=== PATIENT | female | born 1945 | race Caucasian/White ===

== ENCOUNTER 2016-10-30 09:36 | Outpatient (CLI) | payer MEDICARE | END 2016-10-30 09:37 | disposition home or self-care (01) | DX: Z12.31 Encounter for screening mammogram for malignant neoplasm of breast (principal); Z80.3 Family history of malignant neoplasm of breast ==

== ENCOUNTER 2016-12-26 10:39 | Outpatient (CLI) | payer MEDICARE | END 2016-12-26 10:40 | disposition home or self-care (01) | DX: I10 Essential (primary) hypertension (principal) ==

== ENCOUNTER 2017-04-28 10:31 | Outpatient (CLI) | payer MEDICARE ==
[2017-04-28 10:51] LABS: BASOPHILS # (AUTO) 0.1 10^3/uL (0.0-0.1); EOSINOPHILS # (AUTO) 0.4 10^3/uL (0.0-0.7); EOSINOPHILS % (AUTO) 7.4 %; HCT - HEMATOCRIT 38.1 % (37.0-47.0); HGB - HEMOGLOBIN 12.9 g/dL (12.0-16.0); LYMPHOCYTES # (AUTO) 1.8 10^3/uL (1.5-3.5); LYMPHOCYTES % (AUTO) 32.5 %; MEAN CORPUSCULAR HEMOGLOBIN 31.3 pg (27.0-31.0); MEAN CORPUSCULAR HGB CONC 33.9 g/dL (32.0-36.0); MEAN CORPUSCULAR VOLUME 92.3 fL (81.0-99.0); MEAN PLATELET VOLUME 7.6 fL (7.9-10.8); MONOCYTES # (AUTO) 0.6 10^3/uL (0.0-1.0); MONOCYTES % (AUTO) 10.5 %; NEUTROPHILS # (AUTO) 2.7 10^3/uL (1.5-6.6); NEUTROPHILS % (AUTO) 48.6 %; RED BLOOD COUNT 4.13 10^6/uL (4.20-5.40); RED CELL DISTRIBUTION WIDTH 15.2 % (12.0-15.0); UNCORRECTED WHITE BLOOD COUNT 5.5 x10^3/uL; WHITE BLOOD COUNT 5.5 x10^3/uL (4.8-10.8)
[2017-04-28 11:08] LABS: ALBUMIN/GLOBULIN RATIO 1.6 (1.0-2.2); BILIRUBIN,TOTAL 0.4 mg/dL (0.2-1.0); BUN - BLOOD UREA NITROGEN 27 mg/dL (6-20); CARBON DIOXIDE - CO2 28 mmol/L (21-32); CHLORIDE 102 mmol/L (101-111); CHOL/HDL RATIO 2.3 (<4.4); CHOLESTEROL 213 mg/dL; CREATININE 0.5 mg/dL (0.4-1.0); GFR - MDRD 122 (>89); GLUCOSE 109 mg/dL (70-100); HDL CHOLESTEROL 91 mg/dL; POTASSIUM 4.5 mmol/L (3.5-5.0); SODIUM 137 mmol/L (135-145); TOTAL PROTEIN 7.4 g/dL (6.7-8.2)
[2017-04-28 11:24] LABS: LDL/HDL RATIO 1.2 (<4.4); TRIGLYCERIDES 56 mg/dL; VLDL CHOLESTEROL 11 mg/dL
== END 2017-04-28 10:32 | disposition home or self-care (01) ==
LOC: LAB 10:31
PROVIDERS: ATTEND Family Medicine
DX: I10 Essential (primary) hypertension (principal)
CPT/HCPCS: 36415; 80053; 80061; 85025

== ENCOUNTER 2017-05-01 10:36 | Outpatient (CLI) | payer MEDICARE | END 2017-05-01 10:37 | disposition home or self-care (01) | LOC: LAB 10:36 | PROVIDERS: ATTEND Family Medicine | DX: Z13.89 Encounter for screening for other disorder (principal) | CPT/HCPCS: 36415; 86787 ==

== ENCOUNTER 2017-05-11 08:13 | Outpatient (CLI) | payer MEDICARE ==
--- NOTE | 2017-05-11 12:19 | CT Report ---
CT OF THE CHEST FOR LUNG CANCER SCREENIN05/11/2017 CLINICAL INDICATION: A 72-year-old with [id number] history of smoking, quit within the last 15 year s, for screening. COMPARISON: None. TECHNIQUE: Axial CT images of the chest were obtained without intravenous contrast, using low dose sc reening technique. FINDINGS: The heart and great vessels demonstrate atherosclerotic calcification, mild. No hilar or m ediastinal lymphadenopathy is present. Mild emphysema is present. No suspicious pulmonary nodule or m ass lesion is seen. No effusion or pneumothorax is present. The osseous structures demonstrate degene rative changes. Limited evaluation of upper abdominal structures is unremarkable. IMPRESSION: NEGATIVE EXAMINATION. RECOMMENDATION: CONTINUE ANNUAL SCREENING WITH LOW DOSE CT IN TWELVE MONTHS. LUNG RADS CATEGORY 1-NEGATIVE. In accordance with CT protocol optimization, one or more of the following dose reduction techniques w ere utilized for this exam: automated exposure control, adjustment of mA and/or KV based on patient size, or use of iterative reconstructive technique. JOB #: [id number] EXT JOB #:[id number]
== END 2017-05-11 08:14 | disposition home or self-care (01) ==
LOC: DI 08:13
PROVIDERS: ATTEND Family Medicine
DX: Z12.2 Encounter for screening for malignant neoplasm of respiratory organs (principal); Z87.891 Personal history of nicotine dependence

== ENCOUNTER 2017-12-14 09:25 | Outpatient (CLI) | payer MEDICARE ==
--- NOTE | 2017-12-14 15:51 | DEXA Report ---
DEXA SCAN: 12/14/2017 CLINICAL INDICATION: Postmenopausal osteopenia. TECHNIQUE: Dual energy x-ray absorptiometry (DXA) was performed on a [employer] system. Regions measured are the AP spine, femoral neck, and, if needed, forearm. COMPARISON: None. In accordance with the International Society for Clinical Densitometry (ISCD) guidelines, data from previous exams may be reanalyzed using current recommendations and techniques. This is done to allow a more accurate basis for comparison with the current study. FINDINGS The data for the lumbar spine is as follows: REGION BMD (g/cm/cm) T-SCORE Z-SCORE L1 0.997 -1.1 0.5 L2 1.094 -0.9 0.7 L3 1.132 -0.6 1.0 L4 1.097 -0.9 0.7 L1-L4 1.086 -0.8 0.8 NOTE: All evaluable vertebrae are used for classification. The data for the hip is as follows: REGION BMD (g/cm/cm) T-SCORE Z-SCORE Neck 0.901 -1.0 0.7 TOTAL 0.944 -0.5 0.9 NOTE: The femoral neck or total proximal femur, whichever is lowest, is used for classification. IMPRESSION THE WHO CLASSIFICATION BASED ON THE INTERNATIONAL REFERENCE STANDARD IS NORMAL. THE FRACTURE RISK IS NOT INCREASED. RECOMMENDATION: Patients with diagnosis of osteoporosis or osteopenia should have regular bone mineral density assessment. For those eligible for Medicare, routine testing is allowed once every 2 years. Testing frequency can be increased for patients who have rapidly progressing disease or for those who are receiving medical therapy to restore bone mass. COMMENT: World Health Organization (WHO) definitions for osteoporosis and osteopenia: NORMAL BMD: T-score at 1.0 or higher, fracture risk is low. OSTEOPENIA BMD: T-score between 1.0 and -2.5, fracture risk is increased. OSTEOPOROSIS BMD: T-score at 2.5 or lower, fracture risk high. National Osteoporosis Foundation recommends: 1. Obtain adequate dietary calcium (at least 1200 mg per day) and vitamin D (400 -800 international units per day). 2. Participate, as appropriate, in regular weightbearing and muscle- strengthening exercise. 3. Avoid tobacco use and reduce alcohol and caffeine intake. 4. For more detailed information see the website at www.NOF.org. TD: 12/14/2017 12:33 MTDPia
== END 2017-12-14 09:26 | disposition home or self-care (01) ==
LOC: DI 09:25
PROVIDERS: ATTEND Family Medicine
DX: M85.80 Other specified disorders of bone density and structure, unspecified site (principal)
CPT/HCPCS: 77080

== ENCOUNTER 2017-12-14 09:25 | Outpatient (CLI) | payer MEDICARE ==
--- NOTE | 2017-12-16 18:30 | Mammography Report ---
DIGITAL SCREENING MAMMOGRAM: 12/14/2017 CLINICAL INDICATION: A 72-year-old with history of late childbearing, family history of breast cancer for screening. COMPARISON: 10/2016, 08/2015, 04/2014, 12/2012, 06/2011, 05/2010. TECHNIQUE: Routine CC and MLO projections were obtained of the breasts. FINDINGS: Scattered fibroglandular tissue is present within the breasts. There are no dominant masses, suspicious microcalcifications, or secondary signs of malignancy. In comparison to the previous studies, there are no significant changes. ASSESSMENT: NO MAMMOGRAPHIC EVIDENCE OF MALIGNANCY. NO SIGNIFICANT INTERVAL CHANGES. RECOMMENDATION: Screening mammography is recommended annually. BIRADS category 1 - negative. STANDARD QUALIFYING STATEMENTS: 1. This examination was reviewed with the aid of Computed-Aided Detection (CAD). 2. A negative or benign imaging report should not delay biopsy if clinically suspicious findings are present. Consider surgical consultation if warranted. More than 5% of cancers are not identified by imaging. 3. Dense breasts may obscure an underlying neoplasm. TD: 12/16/2017 18:29
== END 2017-12-14 09:26 | disposition home or self-care (01) ==
LOC: DI 09:25
PROVIDERS: ATTEND Family Medicine
DX: Z12.31 Encounter for screening mammogram for malignant neoplasm of breast (principal); Z80.3 Family history of malignant neoplasm of breast
CPT/HCPCS: 77067

== ENCOUNTER 2018-06-24 07:24 | Outpatient (CLI) | payer MEDICARE ==
[2018-06-24 08:19] LABS: BASOPHILS % (AUTO) 1.1 %; EOSINOPHILS # (AUTO) 0.3 10^3/uL (0.0-0.7); EOSINOPHILS % (AUTO) 7.3 %; HGB - HEMOGLOBIN 13.3 g/dL (12.0-16.0); LYMPHOCYTES # (AUTO) 1.4 10^3/uL (1.5-3.5); LYMPHOCYTES % (AUTO) 34.1 %; MEAN CORPUSCULAR HGB CONC 34.1 g/dL (32.0-36.0); MEAN CORPUSCULAR VOLUME 93.7 fL (81.0-99.0); MEAN PLATELET VOLUME 8.1 fL (7.9-10.8); MONOCYTES # (AUTO) 0.4 10^3/uL (0.0-1.0); MONOCYTES % (AUTO) 10.2 %; NEUTROPHILS % (AUTO) 47.3 %; PLT - PLATELET COUNT 218 10^3/uL (130-450); RED BLOOD COUNT 4.16 10^6/uL (4.20-5.40); RED CELL DISTRIBUTION WIDTH 13.6 % (12.0-15.0); WHITE BLOOD COUNT 4.2 x10^3/uL (4.8-10.8)
[2018-06-24 08:44] LABS: ALBUMIN 4.5 g/dL (3.2-5.5); ALBUMIN/GLOBULIN RATIO 1.6 (1.0-2.2); ALKALINE PHOSPHATASE 44 IU/L (42-121); ALT ALANINE AMINOTRANSFERASE 22 IU/L (10-60); AST ASPARTATE AMINOTRANSFERASE 26 IU/L (10-42); BILIRUBIN,TOTAL 0.7 mg/dL (0.2-1.0); BUN - BLOOD UREA NITROGEN 29 mg/dL (6-20); CALCIUM 9.2 mg/dL (8.5-10.3); CARBON DIOXIDE - CO2 26 mmol/L (21-32); CHLORIDE 101 mmol/L (101-111); CHOL/HDL RATIO 2.7 (<4.4); CHOLESTEROL 197 mg/dL; CREATININE 0.7 mg/dL (0.4-1.0); GFR - MDRD 82 (>89); GLUCOSE 116 mg/dL (70-100); HDL CHOLESTEROL 72 mg/dL; LDL CHOLESTEROL,CALCULATED 116 mg/dL; LDL/HDL RATIO 1.6 (<4.4); SODIUM 136 mmol/L (135-145); TOTAL PROTEIN 7.3 g/dL (6.7-8.2); VLDL CHOLESTEROL 9 mg/dL
[2018-06-25 16:32] LABS: HEPATITIS C ANTIBODY NON-REACTIVE (NON-REACTIVE)
== END 2018-06-24 07:25 | disposition home or self-care (01) ==
LOC: LAB 07:24
PROVIDERS: ATTEND Family Medicine
DX: I10 Essential (primary) hypertension (principal); Z13.818 Encounter for screening for other digestive system disorders; Z72.89 Other problems related to lifestyle
CPT/HCPCS: 36415; 80053; 80061; 83721; 84443; 85025; 86803

== ENCOUNTER 2018-06-24 07:43 | Outpatient (CLI) | payer MEDICARE ==
--- NOTE | 2018-06-24 11:33 | XRAY Report ---
Reason: SHOULDER PAIN,LEFT Procedure Date: 06/24/2018 Accession Number: [id number] / [id number] Procedure: XR - Shoulder 3 View LT CPT Code: FULL RESULT: EXAM: LEFT SHOULDER RADIOGRAPHY EXAM DATE: 06/24/2018 07:46 AM. CLINICAL HISTORY: Left shoulder pain for 3 months. COMPARISON: XR CHEST PA AND LAT 09/18/2008. TECHNIQUE: 3 views. FINDINGS: Bones: Normal. No fracture or bone lesion. Joints: The glenohumeral and acromioclavicular joints are normally aligned. No significant degenerative changes. There is an ovoid calcific density measuring 10 x 4 mm adjacent to the superior lateral margin of the humeral head which may or present sequela of calcific tendinopathy or an intra-articular loose body. Soft tissues: The visualized hemithorax is unremarkable. No soft tissue swelling. IMPRESSION: 1. No acute osseous abnormality. 2. Ovoid calcific density adjacent to the superolateral margin of the humeral head may represent sequela of calcific tendinopathy or an intra-articular loose body. RADIA
== END 2018-06-24 07:44 | disposition home or self-care (01) ==
LOC: DI 07:43
PROVIDERS: ATTEND Family Medicine
DX: M25.512 Pain in left shoulder (principal); M25.812 Other specified joint disorders, left shoulder; I10 Essential (primary) hypertension; Z78.9 Other specified health status
CPT/HCPCS: 36415; 80053; 80061; 83721; 84443; 85025; 86803

== ENCOUNTER 2018-06-25 07:17 | Outpatient (CLI) | payer MEDICARE ==
--- NOTE | 2018-06-26 10:29 | CT Report ---
Reason: NICOTINE DEPENDENCE, CIGARETTES IN REMISSION Procedure Date: 06/25/2018 Accession Number: [id number] / [id number] Procedure: CT - Chest/Lung Screen Low Dose W/O CPT Code: FULL RESULT: EXAM CT LUNG SCREEN EXAM DATE: 06/25/2018 07:34 AM. HISTORY: 73-year-old patient with [id number] smoking history. Currently smoking: No. Years since quitting: < 15 years. COMPARISON: CHEST SCREEN LOW DOSE W/O 05/11/2017 8:27 AM. TECHNIQUE: CT examination of the entire thorax without contrast was performed using low-dose technique. Thin section coronal, axial, sagittal and MIP axial images were obtained. In accordance with CT protocol optimization, one or more of the following dose reduction techniques were utilized for this exam: automated exposure control, adjustment of mA and/or KV based on patient size, or use of iterative reconstructive technique. FINDINGS: Nodules: Right upper lobe: Few stable tiny pulmonary nodules/nodular opacities (4/30, 43, 50, 55) measuring up to approximately 4 mm (4/43). Right middle lobe: None. Right lower lobe: None. Stable basal lung cyst. Left upper lobe: Stable 2 mm calcified nodule probably granuloma (4/22). Left lower lobe: Stable subpleural 5 mm nodule (4/108). Emphysema: None. Pleura: Unremarkable. Aorta: Unremarkable. Mediastinum: Scattered atherosclerotic arterial calcifications. Coronary calcifications: Mild calcifications present. Other pulmonary findings: None. Other extrapulmonary findings: None. IMPRESSION: 1. Few stable small pulmonary nodules measuring up to 5 mm. No new nodules. 2. Other findings as noted above. Lung-RADS ASSESSMENT CATEGORY: 2 - Benign appearance or behavior. Probability of malignancy: <1% RECOMMENDATION: Continue annual screening with low-dose chest CT in 12 months. RADIA
== END 2018-06-25 07:18 | disposition home or self-care (01) ==
LOC: DI 07:17
PROVIDERS: ATTEND Family Medicine
DX: Z12.2 Encounter for screening for malignant neoplasm of respiratory organs (principal); R91.8 Other nonspecific abnormal finding of lung field; Z87.891 Personal history of nicotine dependence

== ENCOUNTER 2019-04-13 08:00 | Outpatient (CLI) | payer MEDICARE | END 2019-04-13 23:59 | disposition home or self-care (01) | LOC: LAB.R 08:00 | DX: R19.7 Diarrhea, unspecified (principal) | CPT/HCPCS: 81599; 83630; 87045; 87046; 87177; 87209; 87329; 87493 ==

== ENCOUNTER 2019-05-11 12:42 | Day surgery (SDC) | payer MEDICARE ==
[2019-05-11] MEDS ORDERED: LACTATED RINGERS 1,000 ML IV ONE (12:51)
[2019-05-11] MEDS ORDERED: fentaNYL 250 MCG/5 ML VIAL IVP ONE (15:00)
[2019-05-11] MEDS ORDERED: MIDAZOLAM 2 MG/2 ML VIAL IVP ONE (15:00)
[2019-05-11 15:57] VITALS: BP 158/85
== END 2019-05-11 12:43 | disposition home or self-care (01) ==
LOC: SDS 12:42
PROVIDERS: ATTEND Surgery
PROC: 0DBE8ZX Excision of Large Intestine, Via Natural or Artificial Opening Endoscopic, Diagnostic (ICD-10-PCS; principal; 2019-05-11 13:45)
DX: R19.7 Diarrhea, unspecified (principal); R10.10 Upper abdominal pain, unspecified; I10 Essential (primary) hypertension; Z87.891 Personal history of nicotine dependence
CPT/HCPCS: 45380; J3010; J7120

== ENCOUNTER 2019-06-22 09:25 | Outpatient (CLI) | payer MEDICARE ==
[2019-06-22 12:23] LABS: BASOPHILS % (AUTO) 0.9 %; EOSINOPHILS # (AUTO) 0.3 10^3/uL (0.0-0.7); EOSINOPHILS % (AUTO) 7.1 %; HGB - HEMOGLOBIN 13.9 g/dL (12.0-16.0); LYMPHOCYTES # (AUTO) 1.8 10^3/uL (1.5-3.5); LYMPHOCYTES % (AUTO) 37.9 %; MEAN CORPUSCULAR HGB CONC 32.8 g/dL (32.0-36.0); MEAN CORPUSCULAR VOLUME 94.6 fL (81.0-99.0); MONOCYTES # (AUTO) 0.5 10^3/uL (0.0-1.0); MONOCYTES % (AUTO) 10.8 %; NEUTROPHILS % (AUTO) 42.9 %; PLT - PLATELET COUNT 182 10^3/uL (130-450); RED BLOOD COUNT 4.48 10^6/uL (4.20-5.40); RED CELL DISTRIBUTION WIDTH 13.2 % (12.0-15.0); WHITE BLOOD COUNT 4.6 x10^3/uL (4.8-10.8)
[2019-06-22 12:43] LABS: ALBUMIN 4.4 g/dL (3.2-5.5); ALBUMIN/GLOBULIN RATIO 1.6 (1.0-2.2); ALKALINE PHOSPHATASE 48 IU/L (42-121); ALT ALANINE AMINOTRANSFERASE 25 IU/L (10-60); AST ASPARTATE AMINOTRANSFERASE 25 IU/L (10-42); BILIRUBIN,TOTAL 0.9 mg/dL (0.2-1.0); BUN - BLOOD UREA NITROGEN 22 mg/dL (6-20); CALCIUM 9.2 mg/dL (8.5-10.3); CARBON DIOXIDE - CO2 25 mmol/L (21-32); CHLORIDE 101 mmol/L (101-111); CHOLESTEROL 237 mg/dL; CREATININE 0.5 mg/dL (0.4-1.0); GFR - MDRD 121 (>89); GLUCOSE 116 mg/dL (70-100); HDL CHOLESTEROL 79 mg/dL; LDL CHOLESTEROL,CALCULATED 144 mg/dL; LDL/HDL RATIO 1.8 (<4.4); SODIUM 136 mmol/L (135-145); TOTAL PROTEIN 7.2 g/dL (6.7-8.2); VLDL CHOLESTEROL 14 mg/dL
== END 2019-06-22 23:59 | disposition home or self-care (01) ==
LOC: LAB.WCP 09:25
PROVIDERS: ATTEND Family Medicine
DX: I10 Essential (primary) hypertension (principal)
CPT/HCPCS: 36415; 80053; 80061; 83721; 84443; 85025

== ENCOUNTER 2019-07-28 11:35 | Outpatient (CLI) | payer MEDICARE ==
--- NOTE | 2019-07-29 10:08 | Mammography Report ---
Reason: ROUTINE MAMMO Procedure Date: 07/28/2019 Accession Number: [id number] / [id number] Procedure: DAT - Screening Mammo w/[place] CPT Code: FULL RESULT: EXAM: Screening Mammo w/[place] DATE: 07/28/2019 12:00 PM CLINICAL HISTORY: Screening encounter. Family history of breast cancer in the mother at the age of 48. TECHNIQUE: (B) - Bilateral CC and MLO views were obtained. Right laterally exaggerated CC views obtained. COMPARISON: 12/14/2017 through 05/31/2010. PARENCHYMAL PATTERN: (A) - The breast(s) demonstrate(s) scattered fibroglandular densities. FINDINGS: There are no suspicious masses, calcifications, or areas of distortion. IMPRESSION: Negative examination. BI-RADS category 1. RECOMMENDATION: (ANNUAL) - Recommend routine annual screening mammography. BI-RADS CATEGORY: (1) - Negative. STANDARD QUALIFYING STATEMENTS: 1. This examination was not reviewed with the aid of Computer-Aided Detection (CAD). 2. A negative or benign imaging report should not preclude biopsy if clinically suspicious findings are present. 3. Dense breasts may obscure an underlying neoplasm. 4. This examination was reviewed with the aid of 3D breast imaging (tomosynthesis).
== END 2019-07-28 11:36 | disposition home or self-care (01) ==
LOC: DI 11:35
DX: Z12.31 Encounter for screening mammogram for malignant neoplasm of breast (principal); Z80.3 Family history of malignant neoplasm of breast
CPT/HCPCS: 77063; 77067

== ENCOUNTER 2020-11-13 10:16 | Outpatient (CLI) | payer MEDICARE ==
[2020-11-13 10:42] LABS: BASOPHILS % (AUTO) 0.8 %; EOSINOPHILS # (AUTO) 0.4 10^3/uL (0.0-0.7); EOSINOPHILS % (AUTO) 7.2 %; LYMPHOCYTES # (AUTO) 1.8 10^3/uL (1.5-3.5); LYMPHOCYTES % (AUTO) 37.4 %; MEAN CORPUSCULAR HGB CONC 32.6 g/dL (32.0-36.0); MEAN PLATELET VOLUME 9.7 fL (7.9-10.8); MONOCYTES # (AUTO) 0.5 10^3/uL (0.0-1.0); MONOCYTES % (AUTO) 9.3 %; NEUTROPHILS # (AUTO) 2.2 10^3/uL (1.5-6.6); NEUTROPHILS % (AUTO) 45.1 %; PLT - PLATELET COUNT 178 10^3/uL (130-450); RED CELL DISTRIBUTION WIDTH 13.2 % (12.0-15.0); WHITE BLOOD COUNT 4.9 x10^3/uL (4.8-10.8)
[2020-11-13 11:10] LABS: ALBUMIN 4.4 g/dL (3.2-5.5); ALBUMIN/GLOBULIN RATIO 1.8 (1.0-2.2); ALKALINE PHOSPHATASE 50 IU/L (42-121); ALT ALANINE AMINOTRANSFERASE 22 IU/L (10-60); AST ASPARTATE AMINOTRANSFERASE 24 IU/L (10-42); BILIRUBIN,TOTAL 0.7 mg/dL (0.2-1.0); BUN - BLOOD UREA NITROGEN 25 mg/dL (6-20); CALCIUM 10.1 mg/dL (8.5-10.3); CARBON DIOXIDE - CO2 24 mmol/L (21-32); CHLORIDE 101 mmol/L (101-111); CHOL/HDL RATIO 3.8 (<4.4); CHOLESTEROL 270 mg/dL; CREATININE 0.5 mg/dL (0.4-1.0); GLUCOSE 103 mg/dL (70-100); HDL CHOLESTEROL 72 mg/dL; LDL CHOLESTEROL,CALCULATED 169 mg/dL; LDL/HDL RATIO 2.3 (<4.4); TOTAL PROTEIN 6.9 g/dL (6.7-8.2); VLDL CHOLESTEROL 29 mg/dL
== END 2020-11-13 10:17 | disposition home or self-care (01) ==
LOC: LAB 10:16
PROVIDERS: ATTEND Family Medicine
DX: I10 Essential (primary) hypertension (principal)
CPT/HCPCS: 36415; 80053; 80061; 83721; 85025

== ENCOUNTER 2020-12-06 08:57 | Outpatient (CLI) | payer MEDICARE ==
--- NOTE | 2020-12-06 11:09 | CT Report ---
PROCEDURE: CHEST WO INDICATIONS: PULMONARY NODULE TECHNIQUE: Noncontrast 5 mm thick sections acquired from the pulmonary apices to the posterior costophrenic angl es. 7 mm thick coronal and sagittal MIP reformats were then acquired. For radiation dose reduction, the following was used: automated exposure control, adjustment of mA and/or kV according to patient size. COMPARISON: 06/25/2018 CT. FINDINGS: Image quality: Excellent. Lungs and pleura: No acute air space opacities. Within the right upper lobe laterally several small stable 2 mm nodules can be seen. No new nodule is identified. The largest nodule measures 3 mm. At t he left upper lobe there is a punctate calcified granuloma measuring 2 mm seen on series 6 image 112, and this has not enlarged. It measures only 4 mm and is benign in appearance given stability over ti me. No pleural effusions or pneumothorax. Central and peripheral airways are patent and normal in ca liber. Mediastinum: Heart size is normal. No pericardial effusion. No mediastinal adenopathy by size crit eria. Thoracic aorta and central pulmonary arteries are normal in size. Esophagus is normal in shabana sana. No hiatal hernia. Bones and chest wall: No suspicious bony lesions. No vertebral body compression fractures. No axil toyin or supraclavicular adenopathy by size criteria. The thyroid is normal in size. Abdomen: Visualized upper abdominal solid organs and bowel loops appear normal in the absence of con trast. IMPRESSION: Old granulomatous disease is the likely cause for the scattered several small bilateral pulmonary nod ules stable over time from 2018. No follow-up recommended. Reviewed by: Lonnie Hess MD on 12/06/2020 11:07 AM PST Approved by: Lonnie Hess MD on 12/06/2020 11:07 AM PST Station ID: [id number]
== END 2020-12-06 08:58 | disposition home or self-care (01) ==
LOC: DI 08:57
PROVIDERS: ATTEND Family Medicine
DX: R91.1 Solitary pulmonary nodule (principal)

== ENCOUNTER 2021-02-15 10:49 | Outpatient (CLI) | payer MEDICARE ==
--- NOTE | 2021-02-19 06:09 | Mammography Report ---
BILATERAL DIGITAL SCREENING MAMMOGRAM 3D/2D: 02/15/2021 CLINICAL: Routine screening. Family history of breast cancer. Comparison is made to exams dated: 07/28/2019 mammogram, 12/14/2017 mammogram, 10/30/2016 mammogram, an d 08/27/2015 mammogram - [facility]. There are scattered fibroglandular elements i n both breasts. No significant masses, calcifications, or other findings are seen in either breast. There has been no significant interval change. IMPRESSION: NEGATIVE There is no mammographic evidence of malignancy. A 1 year screening mammogram is recommended. This exam was interpreted at Station ID: [id number]. NOTE: For mammograms, a report in lay terms will be sent to the patient. Approximately 15% of breast malignancies will not be visualized mammographically. In the management of a palpable breast mass, a negative mammogram must not discourage biopsy of a clinically suspicious lesion. Electronically Signed By: Arnoldo Rivers M.D. aty/penrad:02/15/2021 12:24:23 ACR BI-RADS Category 1: Negative [id number] PARENCHYMAL PATTERN: (A) - The breast(s) demonstrate(s) scattered fibroglandular densities. BI-RADS CATEGORY: (1) - 1 RECOMMENDATION: (ANNUAL) - Recommend routine annual screening mammography. [id number] 1 year screening LATERALITY: (B)
== END 2021-02-15 10:50 | disposition home or self-care (01) ==
LOC: DI 10:49
DX: Z12.31 Encounter for screening mammogram for malignant neoplasm of breast (principal); Z80.3 Family history of malignant neoplasm of breast

== ENCOUNTER 2021-03-31 04:48 | Outpatient (CLI) | payer MEDICARE | END 2021-03-31 04:49 | disposition critical access hospital (66) | LOC: EMS 04:48 | DX: M25.552 Pain in left hip (principal); M54.5 Low back pain | CPT/HCPCS: A0425; A0429 ==

== ENCOUNTER 2021-03-31 05:04 | Emergency (ER) | payer MEDICARE ==
[2021-03-31] MEDS ORDERED: HYDROcod/ACETAM 5/325 MG TABLET PO STA (05:40)
--- NOTE | 2021-03-31 07:26 | ED Physician Documentation ---
History of Present Illness - Stated complaint Stated Complaint: HIP PX - Chief complaint Chief Complaint: General - History obtained from History obtained from: Patient - Additonal information Additional information: 76-year-old woman with pmh OA presents with left hip and lower back pain status post fall on Thursday, progressively worsening that she was unable to bear weight this morning. aching, constant, mild at rest, improved with vicodin, worse with rom, without associated swelling, redness. nonradiating. denies fevers, numbness. +weakness Review of Systems Skin: denies: Lesions, Abrasion (s), Laceration (s) Musculoskeletal: reports: Back pain, Joint pain Neurologic: reports: Generalized weakness. denies: Focal weakness, Numbness PD PAST MEDICAL HISTORY - Past Medical History Past Medical History: Yes Cardiovascular: Hypertension Respiratory: None Endocrine/Autoimmune: None GI: None : None HEENT: None Psych: None Musculoskeletal: None Derm: None - Past Surgical History Past Surgical History: Yes - Present Medications Home Medications: Ambulatory Orders Medication Instructions Recorded Confirmed Amlodipine Besylate [Norvasc] 10 mg PO DAILY 03/31/21 03/31/21 Atenolol [Tenormin] 50 mg PO DAILY 03/31/21 03/31/21 Hydrocodone/Acetaminophen [Vicodin 1 each PO Q4H PRN #10 tablet 03/31/21 Hp 10-300 mg Tablet] Meloxicam [Mobic] 1 tablet PO DAILY PRN 03/31/21 03/31/21 lisinopriL [Lisinopril] 40 mg PO DAILY 03/31/21 03/31/21 - Allergies Allergies/Adverse Reactions: Allergies Allergy/AdvReac Type Severity Reaction Status Date / Time doxycycline Allergy Cramps Verified 03/31/21 05:12 erythromycin base Allergy Unknown Verified 03/31/21 05:12 - Social History Does the pt smoke?: No Smoking Status: Never smoker Does the pt drink ETOH?: Yes Does the pt have substance abuse?: No - Immunizations Immunizations are current?: Yes PD ED PE NORMAL - Vitals Vital signs reviewed: Yes - General General: No acute distress, Other (alert and oriented) - HEENT HEENT: Atraumatic, PERRL, EOMI - Neck Neck: No bony TTP - Cardiac Cardiac: RRR - Respiratory Respiratory: No respiratory distress, Clear bilaterally - Abdomen Abdomen: Non tender, Non distended - Back Back: No CVA TTP, No spinal TTP, Other (L lower back pad inspector in muscle distribution) - Derm Derm: Normal color, Warm and dry - Extremities Extremities: No deformity, Other (discomfort with rom of L hip. 2+ BL DP pulses) - Neuro Neuro: No motor deficit, No sensory deficit - Psych Psych: Normal mood, Normal affect Results - Vitals Vitals: Vital Signs - 24 hr 03/31/21 03/31/21 05:06 07:38 Temperature 36.3 C L Heart Rate 72 59 L Respiratory 16 18 Rate Blood Pressure 189/84 H 141/71 H O2 Saturation 95 97 Oxygen O2 Source Room air PD MEDICAL DECISION MAKING - ED course ED course: 76-year-old woman presents with hip pain and inability to bear weight after a fall 2 days ago. Will obtain x-rays and reevaluate. Patient feeling better after the Vicodin. able to get up and use bedside commode. d/w radiology that the compression fracture may be subacute to acute vs age indeterminate. d/w patient who is aware and may f/u [facility] referral to IR for pain management. Departure - Departure Disposition: 01 Home, Self Care Clinical Impression: T12 compression fracture, Fall Condition: Stable Instructions: ED Fx Comp Vertebral Prescriptions: Hydrocodone/Acetaminophen [Vicodin Hp 10-300 mg Tablet] 1 each PO Q4H PRN #10 tablet PRN Reason: Pain Comments: You are seen in the emergency department for back pain after a fall. You have a T12 compression fracture that may have happened as result of the fall. I spoke with a [facility] radiologist who recommended we refer you to interventional radiology for pain management in regards to this compression fracture.You can call [phone] to make an appointment. Tell them you have an ambulatory referral from Dr. Pierce, emergency provider and from the radiologist to read your imaging in the emergency department on 03/31. Please return to the emergency department if Any new or worsening symptoms or other concerns.Follow-up with your primary doctor as well.
[2021-03-31 07:39] VITALS: BP 141/71
--- NOTE | 2021-03-31 08:33 | XRAY Report ---
PROCEDURE: Hip w/Pelvis 2-3V LT INDICATIONS: fall, hip pain TECHNIQUE: AP pelvis with lateral view(s) of the left hip(s). COMPARISON: None. FINDINGS: Bones: No fractures or dislocations. Pelvic ring appears intact. No suspicious bony lesions. Mild bilateral hip degenerative change, left greater than right. Soft tissues: The visualized bowel gas pattern is normal. No suspicious soft tissue calcifications. IMPRESSION: Mild bilateral hip degenerative change. No evidence acute bony abnormality of the pelvis and left hip. Reviewed by: Giancarlo Arellano MD on 03/31/2021 7:31 AM ELDON Approved by: Giancarlo Arellano MD on 03/31/2021 7:31 AM ELDON Station ID: [id number]
--- NOTE | 2021-03-31 08:38 | XRAY Report ---
PROCEDURE: Lumbar Spine 2 View INDICATIONS: fall, low back pain TECHNIQUE: 2 views of the lumbar spine were acquired. COMPARISON: None. FINDINGS: Bones: 5 qsy-uja-wjhdzcj vertebrae are present. There is normal bony alignment. There is a mild com pression fracture of T12 which is likely acute or subacute. No lumbar compressions. No suspicious bon y lesions. Lower lumbar degenerative facet arthropathy. Disc space loss at L5-S1. Soft tissues: Overlying bowel gas pattern is normal. No suspicious soft tissue calcifications. IMPRESSION: 1. A mild compression fracture of T12 is likely acute or subacute. 2. Lumbar degenerative change. A preliminary report with the above findings was provided at the time of the study by [facility]. Above discussed with Dr. Pierce at the time of dictation. Reviewed by: Giancarlo Arellano MD on 03/31/2021 7:37 AM ELDON Approved by: Giancarlo Arellano MD on 03/31/2021 7:37 AM ELDON Station ID: [id number]
[2021-03-31] MEDS ORDERED: KETOROLAC 30 MG/ML VIAL IM STA (08:44)
== END 2021-03-31 09:02 | disposition home or self-care (01) ==
LOC: EDUNIT# → EDBD → ED 05:04 → SUPCPDRO 05:04 → ED 09:02
DX: S22.088A Other fracture of T11-T12 vertebra, initial encounter for closed fracture (principal); W19.XXXA Unspecified fall, initial encounter; I10 Essential (primary) hypertension
CPT/HCPCS: 72100; 73502; 99283; A9270

== ENCOUNTER 2021-04-08 18:05 | Emergency (ER) | payer MEDICARE ==
--- NOTE | 2021-04-08 20:56 | ED Physician Documentation ---
History of Present Illness - Stated complaint Stated Complaint: CONSTIPATION - Chief complaint Chief Complaint: Ext Problem - History obtained from History obtained from: Patient - Additonal information Additional information: She had an accident 10 days ago. She is been on narcotics. Has not had a bowel movement in about that time. May be some tiny little things. This despite taking MiraLAX and Dulcolax. She had heaves when she took 3 doses of Dulcolax but otherwise has not been vomiting. Review of Systems Constitutional: reports: Reviewed and negative Nose: reports: Reviewed and negative Throat: reports: Reviewed and negative PD PAST MEDICAL HISTORY - Past Medical History Cardiovascular: Hypertension Respiratory: None Endocrine/Autoimmune: None GI: None : None HEENT: None Psych: None Musculoskeletal: None Derm: None - Past Surgical History Past Surgical History: Yes - Present Medications Home Medications: Ambulatory Orders Medication Instructions Recorded Confirmed Amlodipine Besylate [Norvasc] 10 mg PO DAILY 03/31/21 04/08/21 Atenolol [Tenormin] 50 mg PO DAILY 03/31/21 04/08/21 lisinopriL [Lisinopril] 40 mg PO DAILY 03/31/21 04/08/21 Gabapentin [Neurontin] 100 mg PO TID PRN #120 04/08/21 LORazepam [Ativan] 1 mg PO TID PRN #12 tablet 04/08/21 oxyCODONE/ACET 5/325 [Percocet 5 1 each PO Q4-6H 04/08/21 04/08/21 mg/325 mg] - Allergies Allergies/Adverse Reactions: Allergies Allergy/AdvReac Type Severity Reaction Status Date / Time doxycycline Allergy Cramps Verified 04/08/21 18:17 erythromycin base Allergy Unknown Verified 04/08/21 18:17 - Social History Does the pt smoke?: No Smoking Status: Never smoker Does the pt drink ETOH?: Yes ETOH Use: Wine Does the pt have substance abuse?: No - Immunizations Immunizations are current?: Yes PD ED PE NORMAL - Vitals Vital signs reviewed: Yes - General General: Alert and oriented X 3, No acute distress - HEENT HEENT: PERRL, EOMI - Neck Neck: Supple, no meningeal sign, No bony TTP - Cardiac Cardiac: RRR, No murmur - Respiratory Respiratory: No respiratory distress, Clear bilaterally - Abdomen Abdomen: Soft, Non tender - Rectal Rectal: Other (No fecal impaction on rectal examination, nontender rectal examination.) - Neuro Neuro: Alert and oriented X 3, Normal speech Results - Vitals Vitals: Vital Signs - 24 hr 04/08/21 18:12 Temperature 37.2 C Heart Rate 73 Respiratory 16 Rate Blood Pressure 182/77 H O2 Saturation 98 Oxygen O2 Source Room air - Labs Labs: Laboratory Tests 04/08/21 21:28 Sodium 134 L Potassium 4.3 Chloride 104 Carbon Dioxide 24 Anion Gap 6.0 BUN 18 Creatinine 0.6 Estimated GFR (MDRD) 97 Glucose 121 H Calcium 9.5 PD MEDICAL DECISION MAKING - ED course ED course: 76-year-old woman presents with obstipation related to recent narcotic use. No fecal impaction on exam which I was surprised by, abdominal x-ray really does not show very impressive stool load given the circumstances. She was given some IV fluids. During her stay she developed some back spasms which were relieved with Toradol and Ativan. She is had a lot of trouble with the left low back and hip despite negative outpatient imaging. I recommended orthopedic consultation for same given the negative plain film so far. Departure - Departure Disposition: Home, Self Care Clinical Impression: Fall T12 compression fracture Qualifiers: Encounter type: subsequent encounter Fracture healing: with routine healing Qualified Code(s): S22.080D - Wedge compression fracture of T11-T12 vertebra, subsequent encounter for fracture with routine healing Constipation Qualifiers: Constipation type: drug induced constipation Qualified Code(s): K59.03 - Drug induced constipation Condition: Good Record reviewed to determine appropriate education?: Yes Instructions: ED Constipation Follow-Up: [facility] [Provider Group] Prescriptions: LORazepam [Ativan] 1 mg PO TID PRN #12 tablet PRN Reason: Anxiety Gabapentin [Neurontin] 100 mg PO TID PRN #120 PRN Reason: Pain Comments: As discussed, we are going to start some multimodal pain management given the worst pain in your left low back and hip. Would like you to take Tylenol scheduled, 2 extra strength every 8 hours. Also you can continue the Aleve. To that I am adding gabapentin. I am starting at a very low dose, it can be doubled or tripled up to 200 or 300 mg 3 times a day. It can be sedating so do not drink or drive with it. Also adding some Ativan for spasms anxiety, try to use this sparingly. You can continue the narcotics as well. Follow-up with the orthopedic surgeon, consider advanced imaging of the lumbar spine and/or hip given the severe pain you are having there.
[2021-04-08] MEDS ORDERED: MAGNESIUM CITRATE 296 ML BOTTLE PO STA (21:04)
[2021-04-08] MEDS ORDERED: SODIUM CHLORIDE 0.9% 1,000 ML IV STA (21:04)
--- NOTE | 2021-04-08 21:40 | XRAY Report ---
PROCEDURE: Abdomen Acute INDICATIONS: vomiting, obstipation TECHNIQUE: One view chest and two views of the abdomen were acquired. COMPARISON: None FINDINGS: Surgical changes and devices: None. Chest: Lungs are clear. Heart size is normal. No pleural effusions. No pneumoperitoneum. Abdomen: Bowel gas pattern is normal. No suspicious calcifications. Visualized solid organ contour s appear normal. Bones: No suspicious bony lesions. IMPRESSION: No acute process. Reviewed by: Jw Powell MD on 04/08/2021 9:39 PM PDT Approved by: Jw Powell MD on 04/08/2021 9:39 PM PDT Station ID: [id number]
[2021-04-08] MEDS ORDERED: KETOROLAC 15 MG/ML VIAL IVP STA (21:57)
[2021-04-08] MEDS ORDERED: GABAPENTIN 100 MG CAPSULE PO STA (21:57)
[2021-04-08] MEDS ORDERED: LORazepam 2 MG/ML VIAL IVP STA (22:22)
[2021-04-08 22:27] LABS: CALCIUM 9.5 mg/dL (8.5-10.3); CREATININE 0.6 mg/dL (0.4-1.0); POTASSIUM 4.3 mmol/L (3.5-5.0)
[2021-04-08 23:13] VITALS: BP 160/99
== END 2021-04-08 23:11 | disposition home or self-care (01) ==
LOC: ED 18:05
DX: K59.03 Drug induced constipation (principal); T40.605A Adverse effect of unspecified narcotics, initial encounter; S22.080A Wedge compression fracture of T11-T12 vertebra, initial encounter for closed fracture; W19.XXXA Unspecified fall, initial encounter; Y93.89 Activity, other specified; M62.830 Muscle spasm of back; I10 Essential (primary) hypertension
CPT/HCPCS: 36415; 74022; 80048; 96374; 96375; 99284; A9270; J2060

== ENCOUNTER 2021-04-18 15:01 | Outpatient (CLI) | payer MEDICARE ==
--- NOTE | 2021-04-18 17:11 | MRI Report ---
PROCEDURE: Hip LT W/O INDICATIONS: LEFT HIP PAIN TECHNIQUE: Noncontrast coronal T1 spin echo and STIR through the bony pelvis. Coronal and axial T2 fast spin ec ho with fat saturation, sagittal T1 spin echo, and oblique axial T2 fast spin echo with fat saturatio n through the hip. COMPARISON: Radiographs dated 03/31/2021 FINDINGS: Bones: No fracture or focal osseous destruction. No avascular necrosis of the femoral heads. Lower lumbar spondylosis and facet arthropathy. Sacroiliac joints: Normal. Tendons: Gluteus minimus: Intact. No atrophy. Gluteus medius: Intact. No atrophy. Iliopsoas tendon: Intact. No adjacent bursitis. Hamstring tendon origin. Mild thickening and T2 hyperintensity/edema suggestive of low-grade partial tear/tendinopathy. Technically, the acuity is indeterminate. Labrum and cartilage: Acetabular labrum: Intact. Cartilage: Cartilage appears intact. There is mild degenerative cystic change seen in the anterior a cetabulum Alpha angle of the femur: Within normal limits at less than 55 degrees. Soft tissues: Visualized muscles: Normal bulk and internal signal. Proximal sciatic neurovascular bundle: Normal. Pelvic free fluid: None. Bladder: Normal. Genitourinary structures and bowel loops: Normal where visualized. IMPRESSION: Mild signal changes and thickening suggestive of low-grade partial tear/tendinopathy involving the le ft hamstring origin although the exact age is unknown. Please correlate clinically to point tendernes s. Elsewhere, no internal derangement. No evidence of occult fracture Reviewed by: Jordan Ashford MD on 04/18/2021 5:10 PM PDT Approved by: Jordan Ashford MD on 04/18/2021 5:10 PM PDT Station ID: [id number]
== END 2021-04-18 15:02 | disposition home or self-care (01) ==
LOC: DI 15:01
PROVIDERS: ATTEND Family Medicine
DX: M25.552 Pain in left hip (principal)

== ENCOUNTER 2021-06-07 10:45 | Outpatient (CLI) | payer MEDICARE ==
--- NOTE | 2021-06-07 13:00 | DEXA Report ---
PROCEDURE: Dexa Spine and/or Hip INDICATIONS: OSTEOPENIA TECHNIQUE: Dual energy x-ray absorptiometry (DXA) was performed on a Vtrim System. Regions measur ed are the AP Spine, femoral neck, and if needed forearm. COMPARISON: 12/14/2017 FINDINGS: Lumbar Spine: Bone Mineral Density 1.186 g/cm/cm,T score 0.1, normal, change from previous 9.2%, significant Left Hip: Bone Mineral Density 0.930 g/cm/cm,T score -0.6, normal, change from previous -1.5% Left Femoral Neck: Bone Mineral Density 0.891 g/cm/cm, T score -1.1, osteopenia (T score greater or equal to -1.0: NORMAL) (T score from -1.1 to -2.4: OSTEOPENIA) (T score less than or equal to -2.5 to: OSTEOPOROSIS) Impression: 1. Significant interval increase in lumbar spine bone mineral density compared to the prior study. 2. Osteopenia of the left femoral neck increased patient's 10 year fracture risk. Patients with diagnosis of osteoporosis or osteopenia should have regular bone mineral density assess ment. For those eligible for Medicare, routine testing is allowed once every 2 years. Testing frequ ency can be increased for patients who have rapidly progressing disease or for those who are receivin g medical therapy to restore bone mass. Reviewed by: Sushma Frazier MD on 06/07/2021 12:58 PM PDT Approved by: Sushma Frzaier MD on 06/07/2021 12:58 PM PDT Station ID: [id number]
== END 2021-06-07 10:46 | disposition home or self-care (01) ==
LOC: DI 10:45
PROVIDERS: ATTEND Family Medicine
DX: M85.88 Other specified disorders of bone density and structure, other site (principal)

== ENCOUNTER 2021-07-12 11:59 | Outpatient (CLI) | payer MEDICARE ==
--- NOTE | 2021-07-12 14:44 | XRAY Report ---
PROCEDURE: Thoracic Spine 2 View INDICATIONS: T12 COMPRESSION FX TECHNIQUE: 3 views of the thoracic spine were acquired. COMPARISON: None. FINDINGS: Bones: There is a T12 compression deformity measuring approximately 50%. This is increased from appro ximately 25% on 03/31/2021. No suspicious bony lesions. 12 pairs of ribs are noted, and appear intact where visualized. Soft tissues: No paravertebral stripe thickening. IMPRESSION: Increase interval compression of T12 compression deformity as above. As clinically indicated, further evaluation with MRI may be obtained for better delineation of acute on chronic fracture. Reviewed by: Gabby Alonso MD on 07/12/2021 2:43 PM PDT Approved by: Gabby Alonso MD on 07/12/2021 2:43 PM PDT Station ID: [id number]
== END 2021-07-12 12:00 | disposition home or self-care (01) ==
LOC: DI 11:59
PROVIDERS: ATTEND Internal Medicine
DX: S22.080A Wedge compression fracture of T11-T12 vertebra, initial encounter for closed fracture (principal)

== ENCOUNTER 2021-08-08 07:18 | Outpatient (CLI) | payer MEDICARE ==
--- NOTE | 2021-08-08 09:05 | MRI Report ---
PROCEDURE: Lumbar Spine W/O INDICATIONS: COMPRESSION FX TECHNIQUE: Noncontrast sagittal T1 spin echo and T2 fast echo, sagittal STIR, axial T1 and T2 fast spin echo thr ough the lumbar spine. Axial and oblique coronal T1 spin echo and STIR through the sacrum. In cases with scoliosis, additional coronal T2 fast spin echo may be performed. COMPARISON: None FINDINGS: Alignment and Curvature: There is normal bony alignment. Bone Marrow: Multilevel endplate degenerative sclerosis and spurring. Diffuse facet arthropathy. No evidence of acute fracture. Subacute/chronic moderate T12 compression fracture. There is minimal heig ht loss since 03/31/2021 however no more recent comparison studies. Spinal Cord: Conus medullaris terminates at the L1 level. Visualized cord demonstrates normal signa l and size. Paraspinous Soft Tissues: No paravertebral masses. 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 T12-L1: Normal in appearance. L1-L2: Minimal canal narrowing. Lateral recess appear grossly patent. Mild bilateral foraminal keith noses. L2-L3: Minimal canal narrowing. Lateral recesses grossly patent. Mild bilateral foraminal narrowin g. L3-L4: Mild canal narrowing. Partial effacement of the left and right lateral recesses with symmetr ic appearance. Mild bilateral foraminal narrowing. L4-L5: Posterior annular fissure. Mild canal narrowing. Partial effacement of the left and right la teral recesses with symmetric appearance. Mild bilateral foraminal stenoses. L5-S1: Minimal canal narrowing. Partial effacement of the left and right lateral recesses with symm etric appearance. Moderate left foraminal narrowing. Moderate to severe right foraminal stenosis with slight/borderline nerve root compression Sacrum: Visualized sacral plexus appears normal. IMPRESSION: Subacute-chronic T12 compression fracture with moderate height loss, which is progressed since 021 however no more recent comparison studies. No high-grade canal stenosis Moderate to severe bilateral foraminal stenoses at L5-S1 as above. Reviewed by: Jordan Ashford MD on 08/08/2021 9:03 AM PDT Approved by: Jordan Ashford MD on 08/08/2021 9:03 AM PDT Station ID: [id number]
== END 2021-08-08 07:19 | disposition home or self-care (01) ==
LOC: DI 07:18
PROVIDERS: ATTEND Physician Assistant Surgical
DX: S22.080A Wedge compression fracture of T11-T12 vertebra, initial encounter for closed fracture (principal); M54.6 Pain in thoracic spine; M54.50 Low back pain, unspecified; G89.29 Other chronic pain

== ENCOUNTER 2022-01-06 09:02 | Outpatient (CLI) | payer MEDICARE ==
[2022-01-06 09:25] LABS: EOSINOPHILS # (AUTO) 0.4 10^3/uL (0.0-0.7); EOSINOPHILS % (AUTO) 8.3 %; HCT - HEMATOCRIT 39.8 % (37.0-47.0); HGB - HEMOGLOBIN 13.3 g/dL (12.0-16.0); LYMPHOCYTES # (AUTO) 1.5 10^3/uL (1.5-3.5); LYMPHOCYTES % (AUTO) 35.7 %; MEAN CORPUSCULAR HEMOGLOBIN 31.1 pg (27.0-31.0); MEAN CORPUSCULAR HGB CONC 33.4 g/dL (32.0-36.0); MEAN CORPUSCULAR VOLUME 93.2 fL (81.0-99.0); MEAN PLATELET VOLUME 9.3 fL (7.9-10.8); MONOCYTES # (AUTO) 0.4 10^3/uL (0.0-1.0); NEUTROPHILS # (AUTO) 1.9 10^3/uL (1.5-6.6); NEUTROPHILS % (AUTO) 44.8 %; PLT - PLATELET COUNT 176 10^3/uL (130-450); RED BLOOD COUNT 4.27 10^6/uL (4.20-5.40); RED CELL DISTRIBUTION WIDTH 13.1 % (12.0-15.0); WHITE BLOOD COUNT 4.2 x10^3/uL (4.8-10.8)
[2022-01-06 09:40] LABS: ALBUMIN 4.9 g/dL (3.2-5.5); ALBUMIN/GLOBULIN RATIO 1.9 (1.0-2.2); ALKALINE PHOSPHATASE 48 IU/L (42-121); ALT ALANINE AMINOTRANSFERASE 38 IU/L (10-60); AST ASPARTATE AMINOTRANSFERASE 36 IU/L (10-42); BUN - BLOOD UREA NITROGEN 21 mg/dL (6-20); CALCIUM 9.9 mg/dL (8.5-10.3); CARBON DIOXIDE - CO2 26 mmol/L (21-32); CHLORIDE 99 mmol/L (101-111); CHOL/HDL RATIO 2.8 (<4.4); CHOLESTEROL 241 mg/dL; CREATININE 0.5 mg/dL (0.4-1.0); GFR - MDRD 120 (>89); GLUCOSE 107 mg/dL (70-100); HDL CHOLESTEROL 87 mg/dL; LDL CHOLESTEROL,CALCULATED 139 mg/dL; LDL/HDL RATIO 1.6 (<4.4); POTASSIUM 4.4 mmol/L (3.5-5.0); SODIUM 139 mmol/L (135-145); TOTAL PROTEIN 7.5 g/dL (6.7-8.2); TRIGLYCERIDES 75 mg/dL; VLDL CHOLESTEROL 15 mg/dL
[2022-01-06 09:51] LABS: THYROID STIMULATING HORMONE 5.63 uIU/mL (0.34-5.60)
[2022-01-07 14:11] LABS: HEPATITIS C ANTIBODY NON-REACTIVE (NON-REACTIVE)
[2022-01-10 09:40] LABS: ESTIMATED AVERAGE GLUCOSE 114 mg/dL (70-100); HEMOGLOBIN A1c% 5.6 % (4.27-6.07)
== END 2022-01-06 09:03 | disposition home or self-care (01) ==
LOC: LAB 09:02
PROVIDERS: ATTEND Internal Medicine
DX: I10 Essential (primary) hypertension (principal); Z13.6 Encounter for screening for cardiovascular disorders; Z79.899 Other long term (current) drug therapy; R06.7 Sneezing; R41.3 Other amnesia; H91.90 Unspecified hearing loss, unspecified ear; F32.9 Major depressive disorder, single episode, unspecified; M76.60 Achilles tendinitis, unspecified leg; R25.1 Tremor, unspecified; R63.5 Abnormal weight gain; J30.2 Other seasonal allergic rhinitis; C44.91 Basal cell carcinoma of skin, unspecified; Z11.59 Encounter for screening for other viral diseases
CPT/HCPCS: 36415; 80053; 80061; 81599; 82607; 83036; 83721; 84439; 84443; 84484; 85025; 86780; 86803

== ENCOUNTER 2022-01-31 09:21 | Outpatient (CLI) | payer MEDICARE ==
--- NOTE | 2022-01-31 10:16 | XRAY Report ---
PROCEDURE: Chest 2 View X-Ray INDICATIONS: WHEEZING TECHNIQUE: 2 view(s) of the chest. COMPARISON: October 06, 2016 FINDINGS: SUPPORT DEVICES: None. LUNGS/PLEURA: Biapical pleural thickening/scarring. No focal consolidation, pleural effusion or space -occupying pneumothorax. MEDIASTINUM: The cardiomediastinal silhouette is within normal limits. BONES/SOFT TISSUES: No acute abnormality. IMPRESSION: 1.No acute cardiopulmonary abnormality. Reviewed by: Yusuf Garcia MD on 01/31/2022 10:14 AM PDT Approved by: Yusuf Garcia MD on 01/31/2022 10:14 AM PDT Station ID: [id number]
== END 2022-01-31 09:22 | disposition home or self-care (01) ==
LOC: DI 09:21
PROVIDERS: ATTEND Internal Medicine
DX: R06.2 Wheezing (principal)

== ENCOUNTER 2022-04-03 10:34 | Outpatient (CLI) | payer MEDICARE ==
--- NOTE | 2022-04-04 08:23 | Mammography Report ---
BILATERAL DIGITAL SCREENING MAMMOGRAM 3D/2D: 04/03/2022 CLINICAL: Family history of breast cancer. Routine screening. Comparison is made to exams dated: 02/15/2021 mammogram, 07/28/2019 mammogram, and 12/14/2017 mammogram - [facility]. There are scattered fibroglandular elements in both breasts. No significant masses, calcifications, or other findings are seen in either breast. There has been no significant interval change. IMPRESSION: NEGATIVE There is no mammographic evidence of malignancy. A 1 year screening mammogram is recommended. This exam was interpreted at Station ID: [id number]. NOTE: For mammograms, a report in lay terms will be sent to the patient. Approximately 15% of breast malignancies will not be visualized mammographically. In the management of a palpable breast mass, a negative mammogram must not discourage biopsy of a clinically suspicious lesion. Electronically Signed By: Gal Oh M.D. ar/penrad:04/03/2022 14:59:38 ACR BI-RADS Category 1: Negative 3341F PARENCHYMAL PATTERN: (A) - The breast(s) demonstrate(s) scattered fibroglandular densities. BI-RADS CATEGORY: (1) - 1 RECOMMENDATION: (ANNUAL) - Recommend routine annual screening mammography. [id number] 1 year screening LATERALITY: (B)
== END 2022-04-03 10:35 | disposition home or self-care (01) ==
LOC: DI.N 10:34
PROVIDERS: ATTEND Internal Medicine
DX: Z12.31 Encounter for screening mammogram for malignant neoplasm of breast (principal); Z80.3 Family history of malignant neoplasm of breast

== ENCOUNTER 2023-04-27 08:51 | Outpatient (CLI) | payer MEDICARE ==
[2023-04-27 09:21] LABS: BASOPHILS % (AUTO) 0.3 %; EOSINOPHILS # (AUTO) 0.1 10^3/uL (0.0-0.7); EOSINOPHILS % (AUTO) 3.1 %; HCT - HEMATOCRIT 36.4 % (37.0-47.0); HGB - HEMOGLOBIN 12.1 g/dL (12.0-16.0); LYMPHOCYTES # (AUTO) 2.3 10^3/uL (1.5-3.5); LYMPHOCYTES % (AUTO) 66.3 %; MEAN CORPUSCULAR HEMOGLOBIN 31.7 pg (27.0-31.0); MEAN CORPUSCULAR HGB CONC 33.2 g/dL (32.0-36.0); MEAN CORPUSCULAR VOLUME 95.3 fL (81.0-99.0); MEAN PLATELET VOLUME 9.6 fL (7.9-10.8); MONOCYTES # (AUTO) 0.1 10^3/uL (0.0-1.0); PLT - PLATELET COUNT 96 10^3/uL (130-450); RED BLOOD COUNT 3.82 10^6/uL (4.20-5.40); RED CELL DISTRIBUTION WIDTH 14.6 % (12.0-15.0); WHITE BLOOD COUNT 3.5 x10^3/uL (4.8-10.8)
[2023-04-27 09:43] LABS: ALBUMIN 4.3 g/dL (3.2-5.5); ALBUMIN/GLOBULIN RATIO 1.6 (1.0-2.2); ALKALINE PHOSPHATASE 38 IU/L (42-121); ALT ALANINE AMINOTRANSFERASE 26 IU/L (10-60); AST ASPARTATE AMINOTRANSFERASE 27 IU/L (10-42); BILIRUBIN,TOTAL 0.6 mg/dL (0.2-1.0); BUN - BLOOD UREA NITROGEN 19 mg/dL (6-20); CALCIUM 9.6 mg/dL (8.5-10.3); CARBON DIOXIDE - CO2 29 mmol/L (21-32); CHLORIDE 102 mmol/L (101-111); CHOL/HDL RATIO 2.8 (<4.4); CHOLESTEROL 228 mg/dL; CREATININE 0.6 mg/dL (0.4-1.0); GFR - MDRD 97 (>89); GLUCOSE 137 mg/dL (70-100); HDL CHOLESTEROL 81 mg/dL; LDL CHOLESTEROL,CALCULATED 135 mg/dL; LDL/HDL RATIO 1.7 (<4.4); POTASSIUM 4.6 mmol/L (3.5-5.0); SODIUM 140 mmol/L (135-145); TRIGLYCERIDES 58 mg/dL; VLDL CHOLESTEROL 12 mg/dL
[2023-04-27 09:56] LABS: THYROID STIMULATING HORMONE 5.79 uIU/mL (0.34-5.60)
[2023-04-27 09:58] LABS: FREE T4 (FREE THYROXINE) 0.79 ng/dL (0.58-1.64)
[2023-04-27 10:38] LABS: ESTIMATED AVERAGE GLUCOSE 128 mg/dL (70-100); HEMOGLOBIN A1c% 6.1 % (4.27-6.07)
== END 2023-04-27 08:52 | disposition home or self-care (01) ==
LOC: LAB 08:51
PROVIDERS: ATTEND Internal Medicine
DX: Z00.00 Encounter for general adult medical examination without abnormal findings (principal); C44.91 Basal cell carcinoma of skin, unspecified; I10 Essential (primary) hypertension; R73.01 Impaired fasting glucose; K52.832 Lymphocytic colitis; J30.2 Other seasonal allergic rhinitis; Z79.899 Other long term (current) drug therapy; E03.8 Other specified hypothyroidism
CPT/HCPCS: 36415; 80053; 80061; 83036; 83721; 84439; 84443; 85025

== ENCOUNTER 2023-05-13 12:50 | Outpatient (CLI) | payer MEDICARE ==
--- NOTE | 2023-05-14 09:21 | Mammography Report ---
BILATERAL DIGITAL SCREENING MAMMOGRAM 3D/2D: 05/13/2023 CLINICAL: Routine screening. Comparison is made to exams dated: 04/03/2022 mammogram, 02/15/2021 mammogram, 07/28/2019 mammogram, 12/14/2017 mammogram, 10/30/2016 mammogram, and 08/27/2015 mammogram - [facility]. There are scattered areas of fibroglandular density in both breasts (category b / 25%-50% glandular t issue). No significant masses, calcifications, or other findings are seen in either breast. There has been no significant interval change. IMPRESSION: NEGATIVE There is no mammographic evidence of malignancy. A 1 year screening mammogram is recommended. Based on the Tyrer Cuzick model (a risk assessment model) the patients lifetime risk is 7.6% and her 10 year risk is 0.0%. According to the ACR, ACS, and NCCN guidelines, an annual breast MRI exam ashleigh g with mammogram is recommended if the patients lifetime risk is 20% or greater. This exam was interpreted at Station ID: [id number]. NOTE: For mammograms, a report in lay terms will be sent to the patient. Approximately 15% of breast malignancies will not be visualized mammographically. In the management of a palpable breast mass, a negative mammogram must not discourage biopsy of a clinically suspicious lesion. Electronically Signed By: Sushma funez/dayan:05/13/2023 16:51:17 letter sent: No_Letter ACR BI-RADS Category 1: Negative 3341F PARENCHYMAL PATTERN: (A) - The breast(s) demonstrate(s) scattered fibroglandular densities. BI-RADS CATEGORY: (1) - 1 Mammogram [id number] 1 year screening LATERALITY: (B)
== END 2023-05-13 12:51 | disposition home or self-care (01) ==
LOC: DI 12:50
PROVIDERS: ATTEND Internal Medicine
DX: Z12.31 Encounter for screening mammogram for malignant neoplasm of breast (principal)

== ENCOUNTER 2023-06-01 16:47 | Outpatient (CLI) | payer MEDICARE | END 2023-06-01 23:59 | disposition critical access hospital (66) | LOC: EMS 16:47 | DX: R51.9 Headache, unspecified (principal); R06.09 Other forms of dyspnea; R21 Rash and other nonspecific skin eruption; R29.898 Other symptoms and signs involving the musculoskeletal system; R53.1 Weakness; I10 Essential (primary) hypertension | CPT/HCPCS: A0425; A0429 ==

== ENCOUNTER 2023-06-01 17:11 | Emergency (ER) | payer MEDICARE ==
[2023-06-01 17:41] LABS: BASOPHILS % (AUTO) 0.4 %; EOSINOPHILS % (AUTO) 0.2 %; HCT - HEMATOCRIT 27.7 % (37.0-47.0); HGB - HEMOGLOBIN 9.4 g/dL (12.0-16.0); LYMPHOCYTES % (AUTO) 83.1 %; MEAN CORPUSCULAR HEMOGLOBIN 31.4 pg (27.0-31.0); MEAN CORPUSCULAR HGB CONC 33.9 g/dL (32.0-36.0); MEAN CORPUSCULAR VOLUME 92.6 fL (81.0-99.0); MONOCYTES % (AUTO) 16.2 %; NEUTROPHILS % (AUTO) 0.1 %; RED BLOOD COUNT 2.99 10^6/uL (4.20-5.40); RED CELL DISTRIBUTION WIDTH 15.5 % (12.0-15.0)
[2023-06-01 17:49] LABS: INR 1.1 (0.8-1.2)
[2023-06-01 17:55] LABS: PLT - PLATELET COUNT 10 10^3/uL (130-450); SLIDE REVIEW? Indicated; WHITE BLOOD COUNT 45.3 x10^3/uL (4.8-10.8)
[2023-06-01 17:56] LABS: ABNORMAL LYMPHS % (MANUAL) 0 %; BAND NEUTROPHILS % (MANUAL) 0 %
[2023-06-01 18:08] LABS: ALBUMIN 4.4 g/dL (3.2-5.5); ALBUMIN/GLOBULIN RATIO 1.5 (1.0-2.2); BILIRUBIN,TOTAL 0.5 mg/dL (0.2-1.0); CALCIUM 10.4 mg/dL (8.5-10.3); CREATININE 0.5 mg/dL (0.6-1.3); MAGNESIUM 1.7 mg/dL (1.7-2.3); POTASSIUM 3.7 mmol/L (3.5-4.5); TOTAL PROTEIN 7.3 g/dL (6.4-8.9)
[2023-06-01 18:17] LABS: LYMPHOCYTES # (MANUAL) 45.3 10^3/uL (1.5-3.5); LYMPHOCYTES % (MANUAL) 85 %; PLATELET ESTIMATE, MANUAL DECREASED (<130,000) (NORMAL); PLATELET MORPHOLOGY NORMAL APPEARANCE (NORMAL); RBC MORPHOLOGY (MULTIPLE) NORMAL APPEARANCE (NORMAL); REACTIVE LYMPHS % (MANUAL) 15 %
[2023-06-01 18:18] LABS: DIFFERENTIAL COMMENT MANUAL DIFFERENTIAL
--- NOTE | 2023-06-01 18:19 | ED Physician Documentation ---
History of Present Illness - Stated complaint Stated Complaint: GEN WEAKNESS - Chief complaint Chief Complaint: General - History obtained from History obtained from: Patient - Additonal information Additional information: 78-year-old woman with history of hypertension, otherwise generally healthy has had just a few days worth of worsening fatigue, ear pounding, fatigue, and rash. She went to the urgent care where she was found to have a hemoglobin of 8.3 and a normal EKG and was referred here. She denies any history of cancer except for a facial basal cell carcinoma. Her sister did of leukemia. PD PAST MEDICAL HISTORY - Past Medical History Cardiovascular: Hypertension Respiratory: None Endocrine/Autoimmune: None GI: None : None HEENT: None Psych: None Musculoskeletal: None Derm: None - Past Surgical History Past Surgical History: Yes - Present Medications Home Medications: Ambulatory Orders Medication Instructions Recorded Confirmed Amlodipine Besylate [Norvasc] 10 mg PO DAILY 03/31/21 04/08/21 Atenolol [Tenormin] 50 mg PO DAILY 03/31/21 04/08/21 lisinopriL [Lisinopril] 40 mg PO DAILY 03/31/21 04/08/21 Gabapentin [Neurontin] 100 mg PO TID PRN #120 04/08/21 LORazepam [Ativan] 1 mg PO TID PRN #12 tablet 04/08/21 oxyCODONE/ACET 5/325 [Percocet 5 1 each PO Q4-6H 04/08/21 04/08/21 mg/325 mg] - Allergies Allergies/Adverse Reactions: Allergies Allergy/AdvReac Type Severity Reaction Status Date / Time doxycycline Allergy Cramps Verified 06/01/23 17:29 erythromycin base Allergy Unknown Verified 06/01/23 17:29 - Social History Does the pt smoke?: No Smoking Status: Never smoker Does the pt drink ETOH?: Yes Does the pt have substance abuse?: No - Immunizations Immunizations are current?: Yes PD ED PE NORMAL - Vitals Vital signs reviewed: Yes - General General: Alert and oriented X 3, Other (Appears well but pale) - HEENT HEENT: PERRL, EOMI - Cardiac Cardiac: RRR, No murmur - Respiratory Respiratory: No respiratory distress, Clear bilaterally - Abdomen Abdomen: Non tender - Back Back: No CVA TTP, No spinal TTP - Derm Derm: Normal color, Warm and dry - Extremities Extremities: Other (Petechia on the arms and legs) - Neuro Neuro: Alert and oriented X 3, Normal speech Results - Vitals Vitals: Vital Signs - 24 hr 06/01/23 06/01/23 06/01/23 17:25 17:41 19:29 Temperature 36.9 C Heart Rate 102 H 83 86 Heart Rate [ Monitoring electrodes] Respiratory 15 10 L 12 Rate Blood Pressure 214/109 H 192/101 H 168/70 H Blood Pressure [Right Brachial artery] O2 Saturation 100 100 97 06/01/23 06/01/23 06/02/23 21:00 23:00 01:42 Temperature 36.8 C Heart Rate 82 80 82 Heart Rate [ Monitoring electrodes] Respiratory 16 17 19 Rate Blood Pressure 150/60 H 150/84 H 140/69 H Blood Pressure [Right Brachial artery] O2 Saturation 98 98 95 06/02/23 06/02/23 06/02/23 02:19 02:42 03:01 Temperature 37.1 C 37.1 C Heart Rate 89 Heart Rate [ 83 85 Monitoring electrodes] Respiratory 16 19 17 Rate Blood Pressure 169/81 H Blood Pressure 169/81 H 165/80 H [Right Brachial artery] O2 Saturation 98 99 98 06/02/23 03:02 Temperature 37.1 C Heart Rate Heart Rate [ 88 Monitoring electrodes] Respiratory 17 Rate Blood Pressure Blood Pressure 169/81 H [Right Brachial artery] O2 Saturation 98 Oxygen O2 Source Room air - Labs Labs: Laboratory Tests 06/01/23 06/01/23 06/01/23 17:34 17:34 17:34 WBC 45.3 H* RBC 2.99 L Hgb 9.4 L Hct 27.7 L MCV 92.6 MCH 31.4 H MCHC 33.9 RDW 15.5 H Plt Count 10 L* MPV 12.0 H Neut # (Auto) Not Reportable Lymph # (Auto) Not Reportable [place] # (Auto) Not Reportable Eos # (Auto) Not Reportable Baso # (Auto) Not Reportable Absolute Nucleated RBC Not Reportable Total Counted 100 Band Neuts % (Manual) 0 Reactive Lymphs % (Man) 15 Abnorm Lymph % (Manual) 0 Nucleated RBC % Not Reportable Neutrophils # (Manual) 0.0 L* Lymphocytes # (Manual) 45.3 H Monocytes # (Manual) 0.0 Eosinophils # (Manual) 0.0 Basophils # (Manual) 0.0 Differential Comment MANUAL DIFFERENTIAL Manual Slide Review Indicated Platelet Estimate DECREASED (<130,000) Platelet Morphology NORMAL APPEARANCE RBC Morph Micro Appear NORMAL APPEARANCE PT 12.0 INR 1.1 Sodium Potassium Chloride Carbon Dioxide Anion Gap BUN Creatinine Estimated GFR (MDRD) Glucose Calcium Magnesium Total Bilirubin AST ALT Alkaline Phosphatase Total Protein Albumin Globulin Albumin/Globulin Ratio Blood Type A POSITIVE Blood Type Recheck Antibody Screen NEGATIVE 06/01/23 06/01/23 17:34 18:37 WBC RBC Hgb Hct MCV MCH MCHC RDW Plt Count MPV Neut # (Auto) Lymph # (Auto) [place] # (Auto) Eos # (Auto) Baso # (Auto) Absolute Nucleated RBC Total Counted Band Neuts % (Manual) Reactive Lymphs % (Man) Abnorm Lymph % (Manual) Nucleated RBC % Neutrophils # (Manual) Lymphocytes # (Manual) Monocytes # (Manual) Eosinophils # (Manual) Basophils # (Manual) Differential Comment Manual Slide Review Platelet Estimate Platelet Morphology RBC Morph Micro Appear PT INR Sodium 136 Potassium 3.7 Chloride 98 L Carbon Dioxide 27 Anion Gap 11.0 BUN 17 Creatinine 0.5 L Estimated GFR (MDRD) 120 Glucose 118 H Calcium 10.4 H Magnesium 1.7 Total Bilirubin 0.5 AST 92 H ALT 72 H Alkaline Phosphatase 223 H Total Protein 7.3 Albumin 4.4 Globulin 2.9 Albumin/Globulin Ratio 1.5 Blood Type Blood Type Recheck A POSITIVE Antibody Screen PD Medical Decision Making - ED course ED course: 78-year-old woman presents with petechia, anemia, and a white count of 45,000 with fatigue. 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 José Luis was called after initial evaluation. Spoke with Dr. Phillips at [facility] who does recommend transfusing platelets and transfer to their hospitalist service. He recommended a goal for the platelet count at 20,000. 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 Care to overnight emergency physician at 10 PM shift change pending hospitalist callback and scheduled for transfer. Platelets have been ordered and should be here a little after midnight I am told. Care to Dr Clark at 10p shift change pending call back from [facility] hospitalist. Departure - Departure Disposition: 02 Transfer Acute Care Hosp Clinical Impression: Thrombocytopenia Leukocytosis Qualifiers: Leukocytosis type: lymphocytosis Qualified Code(s): D72.820 - Lymphocytosis (symptomatic) Anemia Qualifiers: Anemia type: unspecified type Qualified Code(s): D64.9 - Anemia, unspecified Condition: Serious Forms: PCP List Discharge Date/Time: 06/02/23 03:30
[2023-06-01] MEDS ORDERED: LORazepam 2 MG/ML VIAL IVP STA (20:29)
--- NOTE | 2023-06-02 02:28 | ED Physician Documentation ---
ED Addendum - Addendum Addendum: 06/02/23 02:26 I received turnover of care of this patient from Dr. Linares; please see his note for complete history and physical. In brief, this patient presented with fatigue and petechial rash, found to have markedly abnormal blood test to include 45,000 WBC on the CBC as well as 10 K platelets. Her white blood cell count differential reflects 100% lymphocytes. My colleague, Dr. Linares, discussed this case with oncology at [facility] and recommendation is transfusion of platelets transfer to [facility] as soon as a bed becomes available. During my shift, I heard from Dr. Zuleta (hospitalist at [facility]), accepts transfer to [facility].
[2023-06-02 03:08] VITALS: BP 169/81; O2SAT 98
[2023-06-02] MEDS ORDERED: MORPHINE 2 MG/ML CARPUJECT IVP STA (03:18)
[2023-06-02] MEDS ORDERED: PANTOPRAZOLE 40 MG TABLET PO SCH (07:00)
== END 2023-06-02 03:30 | disposition short-term general hospital (02) ==
LOC: EDUNIT# → ED 17:11
DX: D69.6 Thrombocytopenia, unspecified (principal); D72.820 Lymphocytosis (symptomatic); D64.9 Anemia, unspecified
CPT/HCPCS: 36415; 80053; 83735; 85025; 85610; 86850; 86900; 86901; 96374; 96375; 99283; 99284; J2060; P9037; 80048

== ENCOUNTER 2023-06-02 03:30 | Outpatient (CLI) | payer MEDICARE | END 2023-06-02 03:31 | disposition short-term general hospital (02) | LOC: EMS 03:30 | PROVIDERS: ATTEND Emergency Medicine | DX: D75.9 Disease of blood and blood-forming organs, unspecified (principal); D69.6 Thrombocytopenia, unspecified | CPT/HCPCS: A0425; A0426 ==